=== PATIENT | female | born 1995 | race African-American/Black ===

== ENCOUNTER 2024-06-01 13:49 | Emergency (ER) | payer MEDICARE, MEDICAID ==
[~2024-06-01] VITALS: Ht 170.2 cm; Wt 79.7 kg
[2024-06-01 14:10] VITALS: BP 122/75; PULSE 86; RESP 16; O2SAT 100
[2024-06-01 14:36] LABS: BILIRUBIN,URINE NEGATIVE (Neg); CLARITY,URINE SLIGHTLY CLOUDY (Clear); COLOR,URINE STRAW (Yellow); GLUCOSE, URINE NEGATIVE (Neg); KETONES,URINE NEGATIVE (Neg); LEUKOCYTE ESTERASE ,URINE SMALL (Neg); NITRITES, URINE NEGATIVE (Neg); OCCULT BLOOD,URINE MODERATE (Neg); PROTEIN,URINE NEGATIVE (Neg); URINE HCG NEGATIVE (NEG); UROBILINOGEN,URINE 0.2 E.U/dL (0.2-1.0)
[2024-06-01 14:43] LABS: UA COLLECTION TYPE CLN CATCH MIDSTREAM
[2024-06-01 14:44] LABS: WBC,URINE 50-100 /HPF (0-4)
[2024-06-01 14:45] LABS: BACTERIA,URINE 3+ /HPF (Neg); SQUAMOUS EPITHELIAL CELL,UR MANY /LPF (FEW); WBC CLUMPS,URINE MODERATE /HPF (NEGATIVE)
[2024-06-01] MEDS ORDERED: PHEN-716 PO (15:02)
[2024-06-01] MEDS ORDERED: NITR100C6 PO (15:02)
[2024-06-01 15:21] VITALS: TEMP 98
== END 2024-06-01 15:23 | disposition home or self-care (01) ==
LOC: ER 13:51
DX: N39.0 Urinary tract infection, site not specified (principal)
CPT/HCPCS: 81001; 81025; 99283